=== PATIENT | female | born 1975 | race African-American/Black ===

== ENCOUNTER 2021-01-08 17:24 | Emergency (ER) | payer MEDICAID ==
[~2021-01-08] VITALS: Ht 160 cm; Wt 88.6 kg
[~2021-01-08 17:24] MED LIST: BENADRYL25 MG PO; HYDROCODONE-APA1 TAB PO; MEDROL DOSE PACK4 MG PO; ZANTAC150 MG PO
[2021-01-08 17:32] VITALS: Ht 160 cm; Wt 88.6 kg
[2021-01-08 18:50] LABS: CALC OSMOLALITY 276 mosm/kg (275-300); CALCIUM 8.7 mg/dL (8.5-10.1); CARBON DIOXIDE 25.6 mmol/L (21.0-32.0); CHLORIDE - SERUM 104 mmol/L (98-107); CREATININE - SERUM 0.9 mg/dL (0.6-1.3); GLUCOSE 96 mg/dL (74-106); SODIUM 139 mmol/L (136-145); UREA NITROGEN 9 mg/dL (7-18); eGFR NON AFRICAN AMERICAN 72 mL/min (90-120)
[2021-01-08 18:53] LABS: BASOPHILS 0.5 % (0-2); EOSINOPHILS 1.7 % (0-7); HEMATOCRIT 41.1 % (36.0-48.0); HEMOGLOBIN 13.7 g/dL (12-16); IMMATURE GRANULOCYTES 0.2 % (0-5); LYMPHOCYTES 40.4 % (15-50); MCH 30.4 pg (26.0-34.0); MCHC 33.3 g/dL (31.0-37.0); MCV 91.3 fL (80.0-100.0); MONOCYTES 4.7 % (2-11); NEUTROPHIL ABS# 3.12 10x3/uL (1.56-6.13); NEUTROPHILS 52.5 % (40-80); RDW 12.8 % (11.5-14.5); WBC 5.9 10x3/uL (4.8-10.8)
[2021-01-08 18:54] LABS: PLATELET COUNT 259 10x3/uL (130-400)
[2021-01-08 19:01] LABS: ALBUMIN 3.3 g/dL (3.4-5.0); ALKALINE PHOSPHATASE 105 U/L (30-120); ALT (SGPT) 21 U/L (10-68); AMYLASE - SERUM 127 U/L (25-115); BILIRUBIN - TOTAL 0.24 mg/dL (0.2-1.3); LIPASE 142 U/L (73-393); PROTEIN - SERUM 7.9 g/dL (6.4-8.2)
[2021-01-08 19:02] LABS: TROPONIN-I < 0.017 ng/mL (0.000-0.060)
[2021-01-08 19:06] LABS: BILIRUBIN NEGATIVE (NEGATIVE); KETONE NEGATIVE (NEGATIVE); NITRITE NEGATIVE (NEGATIVE); UROBILINOGEN NORMAL mg/dL (< 2)
[2021-01-08 19:11] LABS: BACTERIA FEW HPF (NONE SEEN); SQUAMOUS EPITHELIAL 0-5 HPF (0-4); WHITE CELLS - URINE 0-5 HPF (0-4)
[2021-01-08 19:50] VITALS: BP 102/52
[2021-01-08] MEDS ORDERED: CEPHALEXIN500 M1 PO (20:28)
== END 2021-01-08 20:38 | disposition home or self-care (01) ==
LOC: D.ER 17:24
PROVIDERS: Family Medicine
DX: R10.9 Unspecified abdominal pain (principal); K76.9 Liver disease, unspecified; R11.0 Nausea; R19.7 Diarrhea, unspecified; R21 Rash and other nonspecific skin eruption